=== PATIENT | female | born 1975 | race Caucasian/White ===

== ENCOUNTER 2022-04-17 15:57 | Outpatient (CLI) | payer BC, SELFPAY ==
[2022-04-17 17:32] LABS: Albumin* 4.9 g/dL (3.3-5.0)
[2022-04-17 17:33] LABS: Chloride* 103 mmol/L (96-114); Potassium* 4.4 mmol/L (3.6-5.1); Sodium* 139 mmol/L (135-149)
[2022-04-17 17:35] LABS: Amylase* 43 U/L (18-89); Creatinine* 0.6 mg/dL (0.5-1.5); Estimated Glomerular Filt Rate 112 ml/min
[2022-04-17 17:36] LABS: Alanine Aminotransferase* 39 U/L (4-35); Alkaline Phosphatase* 81 U/L (40-150); Aspartate Amino Transferase* 22 U/L (12-35); Bilirubin Total* 0.5 mg/dL (0.1-1.5); Blood Urea Nitrogen* 10 mg/dL (5-24); Carbon Dioxide* 27 mmol/L (20-32); Glucose* 109 mg/dL (60-115); Total Protein* 7.7 g/dL (6.0-8.3)
[2022-04-17 17:37] LABS: Calcium* 9.8 mg/dL (8.4-10.6)
== END 2022-04-17 15:58 | disposition home or self-care (01) ==
PROVIDERS: PCP Internal Medicine; Visit Provider Internal Medicine
DX: R10.9 Unspecified abdominal pain (principal)
CPT/HCPCS: 80053; 82150; 87086

== ENCOUNTER 2022-08-25 10:13 | Emergency (ER) | payer BC, SELFPAY ==
[2022-08-25 10:23] VITALS: BP 138/70; PULSE 79; RESP 16; TEMP 36.4; O2SAT 99; BMI 39.0
--- NOTE | 2022-08-25 11:02 | CRLHL7_ITS ---
For Patients: As a result of the Century Cures Act, medical imaging exams and procedure reports are released immediately into your electronic medical record. You may view this report before your referring provider. If you have questions, please contact your health care provider. Indication: Left-sided abdominal pain x3 days Technique: Volumetric multidetector CT images of the abdomen and pelvis were obtained after the administration of intravenous contrast. 100 cc Isovue 370 low osmolar intravenous contrast Comparison: None available. Findings: The lung bases are clear. The liver is enlarged with [id number] hepatomegaly and hepatic steatosis. The portal vein is patent. The gallbladder is unremarkable without evidence of radiopaque calculus. There is no significant common biliary ductal dilatation or abrupt cut off. The spleen is normal in enhancement and size. The stomach and duodenum are grossly unremarkable. The pancreas is normal in enhancement without significant atrophy. The adrenal glands are unremarkable. The kidneys demonstrate preserved corticomedullary differentiation without evidence of obstructive uropathy. There is moderate colonic diverticulosis with focal thickening and pericolonic inflammation of the distal descending colon consistent with diverticulitis. There is minimal reactive fluid tracking in the left pericolic gutter. The appendix is unremarkable. There is no significant mesenteric, retroperitoneal, or pelvic sidewall lymph nodes. The aorta is nonaneurysmal. There is no significant atherosclerotic disease appreciated. The solid pelvic viscera are grossly unremarkable. There is no free fluid or free air. The anterior abdominal wall is intact without significant hernias. The lumbar vertebral body heights demonstrate minimal endplate Schmorl`s defects and limbus vertebral body configuration of the T12 level. Impression: Mild focal thickening and pericolonic inflammation of the distal descending colon consistent with low-grade diverticulitis with minimal reactive fluid tracking in the left pericolic gutter. Moderate hepatomegaly and hepatic steatosis. Please note that all CT scans at this facility use dose modulation, iterative reconstruction, and/or weight-based dosing when appropriate to reduce radiation dose to as low as reasonably achievable. Dictated by Geovany Arzola MD @ 08/25/2022 1:49:33 PM (Electronically Signed)
--- NOTE | 2022-08-25 11:24 | ED_ITS ---
HPI - General Adult General Date Seen: 08/25/22 Chief complaint: Flank Pain Stated complaint: L side pain Time Seen by Provider: 08/25/22 10:33 Source: patient Mode of arrival: ambulatory Limitations: no limitations History of Present Illness HPI narrative: Patient is a 47-year-old woman who presents for evaluation of left mid abdominal pain which has been present for a couple of days now. She says that it started Thursday mid day and has been constant ever since. Moderate in intensity. Associated with some nausea but no vomiting. No diarrhea. No urinary symptoms. She has been eating. Hurts to push on that area. No history of similar pain. She has an appointment in clinic for this pain today but decided to come to the ER instead. She does not get regular periods, says that she has gone through menopause at a relatively early age. Has not had periods for quite some time. No unusual vaginal bleeding. Has been taking ibuprofen and Tylenol with some improvement. Worried that she might . Related Data Previous Rx's Medication Instructions Recorded sulfamethoxazole 800 1 tab PO BID 10 days #20 tabs 08/25/22 mg-trimethoprim 160 mg tablet (Bactrim DS) Allergies Allergy/AdvReac Type Severity Reaction Status Date / Time ampicillin Allergy Verified 08/25/22 10:20 [From ampicillin-sulbactam] blue dye Allergy Verified 08/25/22 10:20 latex Allergy Verified 08/25/22 10:20 penicillin G Allergy Verified 08/25/22 10:20 red dye Allergy Verified 08/25/22 10:20 sulbactam Allergy Verified 08/25/22 10:20 [From ampicillin-sulbactam] Review of Systems Status of ROS: Reports: 10 or more systems reviewed and unremarkable except as noted in History and below [facility] Medical History Abdominal pain Social History Smoking Status: Never smoker Do you use any of these nicotine containing products: None Second hand tobacco smoke exposure: No How often do you have a drink containing alcohol: never How often do you have six or more drinks on one occasion: Never AUDIT-C Alcohol total score: 0 Non-prescribed substance use: denies use service: No Exam Narrative: Exam Narrative: Vital signs as noted above. In general, an alert, well-appearing patient. Head: Normocephalic, atraumatic. Eyes: Pupils are equal reactive. Extraocular movements are full. Conjunctivae are normal. ENT: Mucous membranes are moist. Throat is normal. Neck: Supple without lymphadenopathy. Heart: Regular rate and rhythm. No murmur or rub. Lungs: Clear bilaterally. No increased work of breathing, crackles or wheezes. Abdomen: Soft and nondistended. Some left-sided tenderness without rebound guarding or rigidity. Extremities: Well perfused. No edema. No calf tenderness. Pulses intact. Neurologic: Patient is alert and oriented to person and place. Speech is fluent. Face is symmetric. Moves all extremities equally. Affect: Normal. Skin: Warm and dry. Well perfused. Const: Vital Signs, click to edit/add: Vital Signs - 24 hr 08/25/22 10:23 08/25/22 14:00 08/25/22 13:00 Temperature 97.5 F L Pulse Rate [Left P ulse Oximeter] 79 75 Respiratory Rate 16 16 Blood Pressure [Ri ght Upper Arm] 138/70 144/70 H 139/68 Pulse Oximetry 99 Oxygen Delivery Me thod Room Air Documenting provider has reviewed patient's vital signs: yes Course Course Hospital Course: We placed an IV here, she had Zofran as well as Toradol and a L of normal saline. I elected to do a CT scan to look for diverticulitis, colitis, renal pathology or less likely pelvic pathology such as UTI, ovarian cyst, mass, or abscess. Her white blood cell count was slightly elevated at 12.3, hemoglobin was normal at 14.8 and platelets were normal. Metabolic panel was unremarkable. Lactate was 1.1. LFTs were within normal limits. CRP was elevated at 18.1. Lipase was 62. Urinalysis was unremarkable, 0-2 red cells and 0-2 white cells. test was negative. CT scan of the abdomen by my review showed evidence of diverticulitis. Final radiology read is as follows: Impression: Mild focal thickening and pericolonic inflammation of the distal descending colon consistent with low-grade diverticulitis with minimal reactive fluid tracking in the left pericolic gutter. Moderate hepatomegaly and hepatic steatosis. This is consistent with her history and exam. Given that she has some reactive fluid in the abdomen as well I have recommended treatment with antibiotics. With her allergy profile I am using Bactrim. Reviewed with her that if she is worsening rather than gradually improving, has new symptoms such as fever, vomiting, bloody stools, she should return for re-evaluation. Otherwise, recheck with primary care. She has not yet had a colonoscopy, discussed routine colonoscopy is now recommended at 45, this is something that she can consider as an outpatient. Vital Signs Vital signs: Initial Vital Signs Temperature 97.5 F L 08/25/22 10:23 Temperature Source Temporal Artery Scan 08/25/22 10:23 Pulse Rate 79 08/25/22 10:23 Pulse Rhythm 08/25/22 10:23 Pulse Strength 3+ Normal 08/25/22 10:23 Respiratory Rate 16 08/25/22 10:23 Blood Pressure 138/70 08/25/22 10:23 Blood Pressure Mean 92 08/25/22 10:23 Blood Pressure Position Sitting 08/25/22 10:23 Pulse Oximetry 99 08/25/22 10:23 Oxygen Delivery Method 08/25/22 10:23 Vital Signs Temperature 97.5 F L 08/25/22 10:23 Pulse Rate 79 08/25/22 10:23 Respiratory Rate 16 08/25/22 10:23 Blood Pressure 138/70 08/25/22 10:23 Pulse Oximetry 99 08/25/22 10:23 Oxygen Delivery Method 08/25/22 10:23 Temperature 97.5 F L 08/25/22 10:23 Pulse Rate 75 08/25/22 13:00 Respiratory Rate 16 08/25/22 13:00 Blood Pressure 144/70 H 08/25/22 14:00 Pulse Oximetry 99 08/25/22 10:23 Oxygen Delivery Method 08/25/22 10:23 Medical Decision Making Lab Data Labs: Lab Results 08/25/22 08/25/22 08/25/22 Range/Units 11:10 11:20 11:20 WBC 12.28 H (4.50-11.00) K/uL RBC 4.84 (4.00-5.20) m/uL Hgb 14.8 (12.0-16.0) gm/dL Hct 43.7 (33.0-51.0) % MCV 90 (80-100) fL MCH 31 (26-34) pg MCHC 34 (32-36) gm/dL RDW Coeff of [place] 12.4 (11.5-15.5) % Plt Count 263 (140-440) K/uL Neut % (Auto) 69.4 (42.0-72.0) % Lymph % (Auto) 20.1 (20-44) % [place] % (Auto) 9.4 (0.0-11.0) % Eos % (Auto) 0.6 (0.0-7.0) % Baso % (Auto) 0.3 (0.0-3.0) % Neut # (Auto) 8.50 H (1.7-7.0) K/uL Lymph # (Auto) 2.50 (0.90-2.90) K/uL [place] # (Auto) 1.20 H (0.00-0.90) K/UL Eos # (Auto) 0.10 (0.00-0.50) K/uL Baso # (Auto) 0.00 (0.00-0.30) K/uL Sodium 140 (135-149) mmol/L Potassium 4.1 (3.6-5.1) mmol/L Chloride 107 (96-114) mmol/L Carbon Dioxide 26 (20-32) mmol/L BUN 10 (5-24) mg/dL Creatinine 0.6 (0.5-1.5) mg/dL Estimated Creat Clear 95.88 Estimated GFR 111 ml/min Glucose 108 (60-115) mg/dL Lactate (0.5-1.9) mmol/L Calcium 9.2 (8.4-10.6) mg/dL Total Bilirubin (0.1-1.5) mg/dL Direct Bilirubin (0.0-0.5) mg/dL AST (12-35) U/L ALT (4-35) U/L Alkaline Phosphatase (40-150) U/L C-Reactive Protein 18.1 H (0.5-1.0) mg/dL Total Protein (6.0-8.3) g/dL Albumin (3.3-5.0) g/dL Lipase (23-300) U/L Urine Color Yellow (Yellow) Urine Appearance Clear (Clear) Urine pH 6.0 (5.0-8.5) Ur Specific [place] 1.015 (1.000-1.030) Urine Protein Negative (Negative) Urine Glucose (UA) Negative (Negative) Urine Ketones 1+ A (Negative) Urine Blood Negative (Negative) Urine Nitrite Negative (Negative) Urine Bilirubin Negative (Negative) Urine Urobilinogen 1.0 (0.2-1.0) Ur Leukocyte Esterase Trace A (Negative) Urine RBC 0-2 (0-2) Urine WBC 0-2 (0-5) Ur Squamous Epith Cells Few (None-Few) Urine Bacteria None (None) Urine HCG, Qual Negative (Negative) 08/25/22 08/25/22 Range/Units 11:20 11:20 WBC (4.50-11.00) K/uL RBC (4.00-5.20) m/uL Hgb (12.0-16.0) gm/dL Hct (33.0-51.0) % MCV (80-100) fL MCH (26-34) pg MCHC (32-36) gm/dL RDW Coeff of [place] (11.5-15.5) % Plt Count (140-440) K/uL Neut % (Auto) (42.0-72.0) % Lymph % (Auto) (20-44) % [place] % (Auto) (0.0-11.0) % Eos % (Auto) (0.0-7.0) % Baso % (Auto) (0.0-3.0) % Neut # (Auto) (1.7-7.0) K/uL Lymph # (Auto) (0.90-2.90) K/uL [place] # (Auto) (0.00-0.90) K/UL Eos # (Auto) (0.00-0.50) K/uL Baso # (Auto) (0.00-0.30) K/uL Sodium (135-149) mmol/L Potassium (3.6-5.1) mmol/L Chloride (96-114) mmol/L Carbon Dioxide (20-32) mmol/L BUN (5-24) mg/dL Creatinine (0.5-1.5) mg/dL Estimated Creat Clear Estimated GFR ml/min Glucose (60-115) mg/dL Lactate 1.1 (0.5-1.9) mmol/L Calcium (8.4-10.6) mg/dL Total Bilirubin 1.0 (0.1-1.5) mg/dL Direct Bilirubin 0.4 (0.0-0.5) mg/dL AST 26 (12-35) U/L ALT 33 (4-35) U/L Alkaline Phosphatase 57 (40-150) U/L C-Reactive Protein (0.5-1.0) mg/dL Total Protein 8.5 H (6.0-8.3) g/dL Albumin 4.6 (3.3-5.0) g/dL Lipase 62 (23-300) U/L Urine Color (Yellow) Urine Appearance (Clear) Urine pH (5.0-8.5) Ur Specific [place] (1.000-1.030) Urine Protein (Negative) Urine Glucose (UA) (Negative) Urine Ketones (Negative) Urine Blood (Negative) Urine Nitrite (Negative) Urine Bilirubin (Negative) Urine Urobilinogen (0.2-1.0) Ur Leukocyte Esterase (Negative) Urine RBC (0-2) Urine WBC (0-5) Ur Squamous Epith Cells (None-Few) Urine Bacteria (None) Urine HCG, Qual (Negative) Discharge Plan Discharge Clinical Impression: Diverticulitis Patient Disposition: Home, Self-Care Condition: Improved Instructions: Diverticulitis (ED) Additional Instructions: Ibuprofen or Tylenol as needed for pain. Antibiotics as prescribed. Return for worsening pain, new symptoms such as fever or vomiting. Primary care follow-up in a few days for recheck. Prescriptions: New sulfamethoxazole-trimethoprim [Bactrim DS] 800-160 mg tablet 1 tab PO BID 10 Days Qty: 20 0RF Follow Up/Referrals: Brock Simon MD [Primary Care Provider] - Stand Alone Forms: WORK[employer] Info Instructions
[2022-08-25 11:30] LABS: Lactate* 1.1 mmol/L (0.5-1.9)
[2022-08-25 11:31] LABS: Basophils Percent Auto 0.3 % (0.0-3.0); Eosinophils Percent Auto 0.6 % (0.0-7.0); Hematocrit 43.7 % (33.0-51.0); Hemoglobin* 14.8 gm/dL (12.0-16.0); Immature Granulocytes Pct Auto 0.2 %; Lymphocytes Percent Auto 20.1 % (20-44); Mean Corpuscular HGB Conc 34 gm/dL (32-36); Mean Corpuscular Hemoglobin 31 pg (26-34); Mean Corpuscular Volume 90 fL (80-100); Monocytes Percent Auto 9.4 % (0.0-11.0); Neutrophils Percent Auto 69.4 % (42.0-72.0); Platelet Count* 263 K/uL (140-440); RDW Coefficient of Variation % 12.4 % (11.5-15.5); Red Blood Count 4.84 m/uL (4.00-5.20); White Blood Count* 12.28 K/uL (4.50-11.00)
[2022-08-25 11:34] LABS: Slide Review Reflex No
[2022-08-25 11:37] LABS: Ur HCG Qualitative* Negative (Negative)
[2022-08-25 11:46] LABS: Appearance Urine Clear (Clear); Bilirubin Urine Negative (Negative); Blood Urine Negative (Negative); Color Urine Yellow (Yellow); Glucose Urine Negative (Negative); Ketones Urine 1+ (Negative); Leukocyte Esterase Urine Trace (Negative); Nitrite Urine Negative (Negative); Protein Urine Negative (Negative); Specific Gravity Urine 1.015 (1.000-1.030)
[2022-08-25 11:51] LABS: Chloride* 107 mmol/L (96-114)
[2022-08-25 11:52] LABS: Potassium* 4.1 mmol/L (3.6-5.1); Sodium* 140 mmol/L (135-149)
[2022-08-25 11:53] LABS: Albumin* 4.6 g/dL (3.3-5.0)
[2022-08-25 11:54] LABS: Creatinine* 0.6 mg/dL (0.5-1.5); Est. Creatinine Clearance* 95.88; Estimated Glomerular Filt Rate 111 ml/min
[2022-08-25 11:55] LABS: RBC Urine 0-2 (0-2); WBC Urine 0-2 (0-5)
[2022-08-25 11:55] LABS: Blood Urea Nitrogen* 10 mg/dL (5-24); Carbon Dioxide* 26 mmol/L (20-32); Glucose* 108 mg/dL (60-115)
[2022-08-25 11:56] LABS: Squamous Epithelial Cell Urine Few (None-Few)
[2022-08-25 11:56] LABS: Alanine Aminotransferase* 33 U/L (4-35); Alkaline Phosphatase* 57 U/L (40-150); Aspartate Amino Transferase* 26 U/L (12-35); Bilirubin Direct* 0.4 mg/dL (0.0-0.5); Calcium* 9.2 mg/dL (8.4-10.6); Lipase* 62 U/L (23-300); Total Protein* 8.5 g/dL (6.0-8.3)
[2022-08-25 12:11] LABS: C Reactive Protein* 18.1 mg/dL (0.5-1.0)
[2022-08-25] MEDS: KETOROLAC 15 MG/ML inj IVP (12:34)
[2022-08-25] MEDS: 0.9 % SODIUM CHLORIDE 1000 ml 1,000 ML IV (12:35)
[2022-08-25 13:00] VITALS: BP 139/68; PULSE 75; RESP 16
[2022-08-25 14:00] VITALS: BP 144/70
== END 2022-08-25 14:25 | disposition home or self-care (01) ==
PROVIDERS: Emergency Provider Emergency Medicine; PCP Internal Medicine
DX: K57.92 Diverticulitis of intestine, part unspecified, without perforation or abscess without bleeding (principal)
CPT/HCPCS: 36415; 74177; 80048; 80076; 81001; 81025; 83605; 83690; 85025; 86140; 96374; 99284; 99285; J1885; J7030; Q9967